=== PATIENT | male | born 1945 | race Caucasian/White ===

== ENCOUNTER 2022-02-18 12:15 | Inpatient (IN) | payer OTHER ==
[2022-02-18 12:59] LABS: SARS-CoV-2 Antigen Rapid Res Negative (Negative)
--- OUTSIDE RECORDS SUMMARY | 2022-02-18 15:41 | XMS REPORT | Clinical Summary ---
:1945 Author Organization [facility] MD [facility] [place] Address [address] [place] [address] Care Team Providers Name Role Phone Ben Boyd MD Primary Care Provider Jagdish Farrell MD Unavailable Eirn Akers MD Unavailable [phone] Nish Louis MD Unavailable Marcel Rodriguez MD Unavailable Unavailable Aries Bob Unavailable Donell Han Unavailable Akil Choi NP Unavailable Ben Boyd MD Unavailable Ollie Cabrera MD Unavailable Elaina Herron Unavailable Unavailable Allergies No known active allergies Medications Medication Sig Dispensed Refills Start End Date Status Date b complex vitamins Take 1 tablet by 0 Active tablet mouth once a week. LYSINE ORAL Take 2 tablets by 0 Active mouth once a week. NATASHA ROOT, BULK, by miscellaneous 0 Active MISC route once a week. POTASSIUM Take 0.5 tablets 0 Act issa CHLORIDE, BULK, by mouth once a MISCIndications: week. 1/2 tablet daily amLODIPine 0 Active (NORVASC) 2.5 mg 1 tablet rosuvastatin TAKE 1 TABLET BY 0 Active (CRESTOR) 5 mg MOUTH ONCE DAILY 1 tablet AT BEDTIME UNABLE TO FIND Med Name: cerebra 0 Active diphenhydrAMINE-ac Take 1 tablet by 0 Active etaminophen mouth nightly as (TYLENOL PM) needed for sleep. 25-500 mg tab DOCOSAHEXANOIC Take by mouth 0 08/27/19 D iscontinued ACID/EPA (FISH OIL daily. 22 ( Not ORAL) Applicable ) amoxicillin-clavul Take 1 tablet by 0 08/03 09/20 Discontinued anate (AUGMENTIN) mouth twice 22 (Not 250-125 mg per daily. Appli cable) tablet eszopiclone 0 02/18/20 Disconti nued (LUNESTA) 2 mg 1 22 tablet bicalutamide Take 1 tablet (50 30 tablet 0 02/18/20 Discontinued (CASODEX) 50 mg mg) by mouth 1 22 tabletIndications: daily. Adenocarcinoma of prostate Active Problems Problem Noted Date Malignant neoplasm of prostate 01/19/2017 Encounters Date Type Specialty Care Team Description 02/17/2022 Office Visit Urology Ben Boyd Adenocarcino ma of prostate 02/17/2022 Hospital Encounter Lab Ben Boyd Adenoc arcinomeche of prostate 02/17/2022 Travel 08/26/2021 Office Visit Urology Ben Boyd Adenocarcino ma of prostate 08/26/2021 Ancillary Procedure Radiology Adenocar cinoma of prostate 08/26/2021 Hospital Encounter Lab Adenocarc inoma of prostate 08/26/2021 Travel 02/25/2021 Office Visit UrologBen Lawrence Adenocarcino ma of prostate 02/25/2021 Travel 02/21/2021 Ancillary Procedure Radiology Adenocar cinoma of prostate 02/21/2021 Travel 02/18/2021 Office Visit Urology Ben Boyd Adenocarcino ma of prostate 02/18/2021 Hospital Encounter Lab Ben Boyd Adenoc arcinomeche of prostate 02/18/2021 Travel after 02/18/2021 Social History Tobacco Use Types Packs/Day Years Used Date Never Assessed Sex Assigned at Date Recorded Not on file Job Start Date Occupation Industry Not on file Not on file Not on file COVID-19 Exposure Response Date Recorded In the last 10 days, have you been in contact with No / Unsu re 02/17/2022 8:31 AM CDT someone who was confirmed or suspected to have Coronavirus/COVID-19? Last Filed Vital Signs Vital Sign Reading Time Taken Comments Blood Pressure 119/77 02/17/2022 8:39 AM CDT Pulse 91 02/17/2022 8:39 AM CDT Temperature 36.7 C (98.1 F) 02/17/2022 8:39 AM CDT Respiratory Rate 18 02/17/2022 8:39 AM CDT Oxygen Saturation 96% 02/17/2022 8:39 AM CDT Inhaled Oxygen Concentration - - Weight 79 kg (174 lb 2.6 oz) 02/17/2022 8:35 AM CDT Height 175.3 cm (5' 9.02") 08/26/2021 9:22 AM CDT Body Mass Index 25.71 08/26/2021 9:22 AM CDT Plan of Treatment Date Type Specialty Care Team Description 08/18/2022 Appointment Lab Ben Boyd MD [address] [place], [place] [address] (Wo rk) 08/18/2022 Office Visit Urology Ben Boyd MD [address] [place], [place] [address] (Elias rk) Health Maintenance Due Date Last Done Comments COVID-19 Vaccination (#1) 01/13/1950 Procedures Procedure Name Priority Date/Time Associated Diagnosis Comme nts TESTOSTERONE LEVEL Routine 02/17/2022 8:15 Adenocarcinoma of R esults for this AM CDT prostate procedure are i n the results section. PROSTATE SPECIFIC Routine 02/17/2022 8:15 Adenocarcinoma of Re sults for this ANTIGEN AM CDT prostate procedure are i n the results section. DEXA BONE MINERAL Routine 08/26/2021 9:12 Adenocarcinoma of Re sults for this DENSITY BOTH HIPS AM CDT prostate procedure are in AND SPINE the results section. TESTOSTERONE LEVEL Routine 08/26/2021 8:12 Adenocarcinoma of R esults for this AM CDT prostate procedure are i n the results section. PROSTATE SPECIFIC Routine 08/26/2021 8:12 Adenocarcinoma of Re sults for this ANTIGEN AM CDT prostate procedure are i n the results section. PETCT Routine 02/21/2021 4:25 Adenocarcinoma of Results for this 18F-PIFLUFOLASTAT PM CDT prostate procedure are in (PSMA PYL) the results section. POC CREATININE Routine 02/21/2021 3:02 Results fo r this PM CDT procedure are i n the results section. GENERAL LABORATORY STAT 02/18/2021 10:49 Adenocarcinoma of Results for this ADD ON TEST AM CDT prostate procedure are i n the results section. TESTOSTERONE LEVEL Routine 02/18/2021 8:32 Result s for this AM CDT procedure are i n the results section. PROSTATE SPECIFIC Routine 02/18/2021 8:32 Adenocarcinoma of Re sults for this ANTIGEN AM CDT prostate procedure are i n the results section. after 02/18/2021 Results (ABNORMAL) Testosterone Level (02/17/2022 8:15 AM CDT)Only the most recent of3 resultswithin the time period is included. athologist Signature Testoster Tot <3 (L) 193 - 740 [facility] ng/dL CANCER CENTER Comment: Reference Ranges: Male: Age 20 - 49 249 - 836 Age >=50 1 93 - 740 Female: Age 20 - 49 8 - 48 Age >=50 3 - 41 Specimen Anatomical Collection Method Collection Time Receive d Time (Source) Location / / Volume Laterality Blood 02/17/2022 8:15 AM 2 8:40 CDT AM CDT Ben Boyd MD LAB BLOOD ORDERABLES Performing Organization Address City/State/ZIP Code Phon e Number [facility] CANCER Unless otherwise noted, [place] [address] CENTER all lab tests performed by: Division of Pathology and Laboratory Medicine [address] [facility] PSA (02/17/2022 8:15 AM CDT)Only the most recent of3 resultswithin the time period is included. athologist [facility] PSA <0.1 0.0 - 4.0 [facility] ng/mL DIAGNOSTIC CENTER Comment: Results greater than 4519 ng/mL may not be reliable due to matrix effect with extended dilution as it exceeds the clinic office coordinator's recommended limit. Caution should be exercised when interpreting farris ch values and done in conjunction with clinical context. PSA Indication Diagnostic [facility] DIAGNOSTIC CENTER Specimen Anatomical Collection Method Collection Time Receive d Time (Source) Location / / Volume Laterality Blood 02/17/2022 8:15 AM 8:31 CDT AM CDT Ben Boyd MD LAB BLOOD ORDERABLES Performing Organization Address City/State/ZIP Code Phon e Number [facility] DIAGNOSTIC Unless otherwise noted, [place], [place] [address] CENTER all lab tests performed by: Division of Pathology and Laboratory Medicine [address] [place] [address] Bone Mineral Density Both Hips and Spine (08/26/2021 9:12 AM CDT) Anatomical Region Laterality Modality Spine Nuclear Medicine Specimen (Source) Anatomical Collection Method Collection Time Re ceived Time Location / / Volume Laterality 08/26/2021 9:13 AM CDT Impressions 08/26/2021 9:26 AM CDT 1. Osteopenia, based on measurements in the bilateral femoral necks and bilateral total hips. 2. Statistically significant interval decrease in bone mineral density in the left total hip compared to 05/16/2019. I personally reviewed these image(s) malinda faulkner with the resident's/fellow's interpretations, certify that if a procedure was performed I was physically present, and agree with the final report. Narrative 08/26/2021 9:26 AM CDT FULL RESULT: Examination: Bone Mineral Density (DXA), 08/26/2021 Clinical History: 76-year-old male treat ed for prostate cancer. Indication: Assessment of bone mineral d ensity. Comparison: DEXA 05/16/2019 Technique: Bone mineral density was obta ined using Hologic dual-energy X-ray absorptiometry. Findings: The findings are provided in t he below table(s). Bone Density: Region Exam Date BMD T- Z- g/cm2 Score Score AP Spine (L1-L4) 08/26/2021 1. 148 0.5 1.6 Femoral Neck (Left) 08/26/2021 0. 625 -2.2 -0.8 Total Hip (Left) 08/26/2021 0. 796 -1.6 -0.6 Femoral Neck (Right) 08/26/2021 0. 625 -2.2 -0.8 Total Hip (Right) 08/26/2021 0. 750 -1.9 -0.9 For postmenopausal women and men age 50 and over, the World Health Organization criteria for BMD interpreta tion classify patients as: Normal (T-score at or above -1.0), Osteopenia ( T-score between -1.0 and -2.5), or Osteoporosis (T-score at or be low -2.5). Previous Exams: Region Exam Age BMD T-score B MD Change vs Date g/cm2 Baseline Previous AP Spine (L1-L4) 08/26/2021 76 1.148 0.5 1.6% 1.6% 05/16/2019 74 1.130 0.4 Total Hip(Left) 08/26/2021 76 0.796 -1.6 -4.7%* -4.7%* 05/16/2019 74 0.836 -1.3 Femoral Neck(Left) 08/26/2021 76 0.625 -2.2 -1.9% -1.9% 05/16/2019 74 0.637 -2.2 Total Hip(Right) 08/26/2021 76 0.750 -1.9 -1.0% -1.0% 05/16/2019 74 0.757 -1.8 Femoral Neck(Right) 08/26/2021 76 0.625 -2.2 -4.1% -4.1% 05/16/2019 74 0.651 -2.0 *Denotes significance at 95% confidence level, site specific LSC for AP Spine = 0.029 g/cm2, site specific LSC for Tot al Hip = 0.033 g/cm2, site specific LSC for Femoral Neck = 0.045 g/cm2, LSC for 1/3 Forearm = 0.023 g/cm2 Procedure Note Jessica Porter MD - 08/26/2021Fo rmatting of this note might be different from the original. FULL RESULT: Examination: Bone Mineral Density (DXA), 08/26/2021 Clinical History: 76-year-old male treat ed for prostate cancer. Indication: Assessment of bone mineral d ensity. Comparison: DEXA 05/16/2019 Technique: Bone mineral density was obta ined using Hologic dual-energy X-ray absorptiometry. Findings: The findings are provided in t he below table(s). Bone Density: Region Exam Date BMD T- Z- g/cm2 Score Score AP Spine (L1-L4) 08/26/2021 1.148 0.5 1.6 Femoral Neck (Left) 08/26/2021 0.625 -2.2 -0.8 Total Hip (Left) 08/26/2021 0.796 -1.6 -0.6 Femoral Neck (Right) 08/26/2021 0.625 -2.2 -0.8 Total Hip (Right) 08/26/2021 0.750 -1.9 -0.9 For postmenopausal women and men age 50 and over, the World Health Organization criteria for BMD interpreta tion classify patients as: Normal (T-score at or above -1.0), Osteopenia ( T-score between -1.0 and -2.5), or Osteoporosis (T-score at or be low -2.5). Previous Exams: Region Exam Age BMD T-score BMD Change v s Date g/cm2 Baseline Previous AP Spine (L1-L4) 08/26/2021 76 1.148 0.5 1.6% 1.6% 05/16/2019 74 1.130 0.4 Total Hip(Left) 08/26/2021 76 0.796 -1.6 -4.7%* -4.7%* 05/16/2019 74 0.836 -1.3 Femoral Neck(Left) 08/26/2021 76 0.625 -2.2 -1.9% -1.9% 05/16/2019 74 0.637 -2.2 Total Hip(Right) 08/26/2021 76 0.750 -1.9 -1.0% -1.0% 05/16/2019 74 0.757 -1.8 Femoral Neck(Right) 08/26/2021 76 0.625 -2.2 -4.1% -4.1% 05/16/2019 74 0.651 -2.0 *Denotes significance at 95% confidence level, site specific LSC for AP Spine = 0.029 g/cm2, site specific LSC for Tot al Hip = 0.033 g/cm2, site specific LSC for Femoral Neck = 0.045 g/cm2, LSC for 1/3 Forearm = 0.023 g/cm2 IMPRESSION: 1. Osteopenia, based on measurements in the bilateral femoral necks and bilateral total hips. 2. Statistically significant interval de crease in bone mineral density in the left total hip compared to 05/16/2019. I personally reviewed these image(s) malinda faulkner with the resident's/fellow's interpretations, certify that if a procedure was performed I was physically present, and agree with the final report. Ben Boyd MD IMG DXA ORDERABLES PETCT Piflufolastat (PSMA PYL) (02/21/2021 4:25 PM CDT) Anatomical Region Laterality Modality Whole Body Positron Emission To mography (PET) Specimen (Source) Anatomical Collection Method Collection Time Re ceived Time Location / / Volume Laterality 02/21/2021 11:45 PM CDT Impressions 02/21/2021 11:51 PM CDT No PSMA-avid residual tumor nor metastas is is identified. Narrative 02/21/2021 11:51 PM CDT FULL RESULT: Examination: F-18 DCFPyL PET/CT, 021 4:30 pm Clinical History: A 76-year-old male wit h prostate cancer underwent prostatectomy in 02/2014 followed by systemic therapy including Lupron since 2018. His serum PSA levels is 1.8 ng/ml on 02/18/2021 Indication: Subsequent treatment strateg y Comparison: Technique: F-18 F-18 DCFPyL 9.5 mCi was administered intravenously via left antecubital vein vein. To allow for distribution and uptake of radiotracer, the patient was asked to rest quietly for approx imately 60 minutes. PET/CT imaging was performed from the skull to upper thigh. CT scanning was done for attenuation correction, image registration, and diagnosis with scan parameters optimized to min imize radiation exposure to the patient. SUV measurements are reported as maximum SUV based on body weight unless otherwise specified. Findings: Head and Neck: There is physiologic trac er uptake in the lacrimal glands and salivary glands. No abnormal tracer uptake is noted in the brain parenchyma, oropharynx and the thyroid glands. No abnormal t racer uptake in the neck muscles is note d. No suspicious neck lymphadenopathy is identified. Chest: No PSMA-avid pulmonary nodule is identif ied. No No PSMA-avid lymphadenopathy is seen in the axilla, don nor mediastinum. There is no pleural effusion nor pericar dial effusion. Scattered atherosclerotic calcification of the and coronary vessels aorta is noted. Abdomen and Pelvis: No PSMA avid focus is noted the prostate ctomy bed. The liver, spleen, gallbladder, adrenal glands, kidneys pancreas and the bowel loops are unremarkable. No PSMA avid lymphadenopathy is noted in the mesentery, retroperitoneum, iliac nor inguinal stations. Musculoskeletal: No PSMA avid osseous metastasis is ident ified. Degenerative changes are also seen in th e joints of the shoulders, spine and hips. Procedure Note Braxton De La Fuente MD - 02/21/2021Formattin g of this note might be different from the original. FULL RESULT: Examination: F-18 DCFPyL PET/CT, 021 4:30 pm Clinical History: A 76-year-old male wit h prostate cancer underwent prostatectomy in 02/2014 followed by systemic therapy including Lupron since 2018. His serum PSA levels is 1.8 ng/ml on Indication: Subsequent treatment strateg y Comparison: Technique: F-18 F-18 DCFPyL 9.5 mCi was administered intravenously via left antecubital vein vein. To allow for distribution and uptake of radiotracer, the patient was asked to rest quietly for approximately 60 minutes. PET/CT imaging was performed fr om the skull to upper thigh. CT scanning was done for attenuation correction, image registration, and diagnosis with scan parameters optimized to minimize radiation exposure to the patient. SUV measurements are report ed as maximum SUV based on body weight unless otherwise specified. Findings: Head and Neck: There is physiologic trac er uptake in the lacrimal glands and salivary glands. No abnormal tracer uptake is noted in the brain parenchyma, oropharynx and the thyroid glands. No abnormal tracer uptake in the neck muscles is noted. No suspici ous neck lymphadenopathy is identified. Chest: No PSMA-avid pulmonary nodule is identif ied. No No PSMA-avid lymphadenopathy is seen in the axilla, don nor mediastinum. There is no pleural effusion nor pericar dial effusion. Scattered atherosclerotic calcification of the and coronary vessels aorta is noted. Abdomen and Pelvis: No PSMA avid focus is noted the prostate ctomy bed. The liver, spleen, gallbladder, adrenal glands, kidneys pancreas and the bowel loops are unremarkable. No PSMA avid lymphadenopathy is noted in the mesentery, retroperitoneum, iliac nor inguinal stations. Musculoskeletal: No PSMA avid osseous metastasis is ident ified. Degenerative changes are also seen in th e joints of the shoulders, spine and hips. IMPRESSION: No PSMA-avid residual tumor nor metastas is is identified. Ben Boyd MD I[place] PETCT ORDERABLES (ABNORMAL) POC Creatinine (02/21/2021 3:02 PM CDT) P athologist Signature POC Crea 2.0 (H) 0.6 - 1.3 POC [facility] mg/dL Comment: Medications, especially hydroxyurea or s upplements, such as ascorbate, can interfere with test results causing a falsely and significantly higher result than expected. If a problem is suspected with a patient's result, a sample should be sent to the laboratory for confirmatory testing. Method description: The i-STAT is an ming lyzer used for in vitro quantification of various analytes in whole blood. The device uses a single disposable cartridge which contains microfabricated sensors, a calibration solution, fluidics system, and a waste chamber. Each test cartridge contains ch emically sensitive biosensors on a silicon chip that are configured to perform specific tests. The microfabricated sensors measure analyte concentration by an electrochemical assay. POC eGFR-AA 36 (L) >=60 mL/min/1.73 m2 POC [facility] OR Comment: Normal eGFR >= 60 mL/min/1.73 m2 The eGFR is calculated using the CKD-EPI equation. The eGFR declines with age. eGFR <60 mL/min/1.73 m2 is considered as "decreased" This equation should only be used for patients 18 and older. According to the National Kidney Found[employer] ion's Kidney Disease Outcome Quality Initiative (KDOQI) classification and 2012 Kidney Disease Improving Global Outcomes (KDIGO) Clinical Practice Guideline, the stage of CKD should be categorized based on estimated GFR. Stage Description GFR mL/min/1.73 m2 1 Kidney damage with normal or high GFR >=90 2 Kidney damage with mild decrease in GF R 60-89 3a Mild to moderate decrease in GFR 45-59 3b Moderate to severe decrease in GFR 30-44 4 Severe decrease in GFR 15-29 5 Kidney failure <15 (or dialysis) POC eGFR-DALE 31 (L) >=60 mL/min/1.73 m2 POC [facility] Comment: Normal eGFR >= 60 mL/min/1.73 m2 The eGFR is calculated using the CKD-EPI equation. The eGFR declines with age. eGFR <60 mL/min/1.73 m2 is considered as "decreased" This equation should only be used for patients 18 and older. According to the National Kid[employer] ion's Kidney Disease Outcome Quality Initiative (KDOQI) classification and 2012 Kidney Disease Improving Global Outcomes (KDIGO) Clinical Practice Guideline, the stage of CKD should be categorized based on estimated GFR. Stage Description GFR mL/min/1.73 m2 1 Kidney damage with normal or high GFR >=90 2 Kidney damage with mild decrease in GF R 60-89 3a Mild to moderate decrease in GFR 45-59 3b Moderate to severe decrease in GFR 30-44 4 Severe decrease in GFR 15-29 5 Kidney failure <15 (or dialysis) POC Clean Dev Yes POC [facility] Performing Lab [facility] POC TELCO R Comment: [facility] Clinical Lab, [facility], [place] [address]; Lab Direct or: Destinee Lord MD Specimen Anatomical Collection Method Collection Time Receive d Time (Source) Location / / Volume Laterality Blood 02/21/2021 3:02 PM 3:02 CDT PM CDT Unknown Provider POCT ORDERABLES - DEVICE Performing Organization Address City/State/ZIP Code Phon e Number POC [facility] Add-On Test (02/18/2021 10:49 AM CDT) [facility] Method Time Signature Ordered Test Added [facility] Test Needed Testosterone add [place] on [place] Specimen Anatomical Collection Method Collection Time Receive d Time (Source) Location / / Volume Laterality Existing 02/18/2021 10:49 02/18/2021 AM CDT 10:50 AM CDT Ben Boyd MD LAB BLOOD ORDERABLES Performing Organization Address City/State/ZIP Code Phon e Number [facility] CANCER Unless otherwise noted, [place] [address] [place] all lab tests performed by: Division of Pathology and Laboratory Medicine [address] [place] [address] after 02/18/2021 Insurance Payer Benefit Plan / Subscriber ID Effective Dates Phone Addre ss Type Group MEDICARE MEDICARE PART [id number] 2008-Steven [phone] [facility] Medicare A AND B nt 2 SOLUTIONS [address] [place] [address] Care Teams Deputy Commonwealth'S Attorney Relationship Specialty Start Date End Date Ben Boyd MD PCP - General 07/04/[address] [place] [address] Jagdish Farrell MD PCP - External Primary Care 01/18/14 [address] [place] [address] Erin Akers, PCP - External Referring [place] [place] [address] Nish Louis MD PCP - External Follow Up A 01/18/14 Marcel Rodriguez MD Physician 07/11/15 Aries Bob PA Physician Supervisor [employer] 07/11/15 [address] [place] [address] Donell Han PA Physician Supervisor [employer] 07/11/[address] [place] [address]. [place] [address] Akil Choi, VICTOR HUGO Nurse Practitioner 07/11/[address] [place] [address] Ben Boyd MD Physician 07/11/[address] [place] [phone] Ollie Cabrera MD Physician 07/11/[address] [place] [address] Elaina Herron PA Physician Supervisor [employer] 07/11/15 [address] [place] [address]
--- OUTSIDE RECORDS SUMMARY | 2022-02-18 15:42 | XMS REPORT | Continuity of Care Document ---
:1945 Author Organization [facility] t Address [address] [place] [address] Care Team Providers Name Role Phone [phone] Primary Care Physician Unavailable SYSTEM, PROVIDER NOT IN Attending Clinician Unavailable Ben Kauffman MD Attending Clinician BEN KAUFFMAN Attending Clinician Unavailable Payers Payer Name Policy Type Policy Number Effective Date Expiration Date S ource Problems Condition Condition Condition Status Onset Resolution Last Treating Co mments Source Name Details Category Date Date Treatment Clinician Date Malignant Malignant Disease Active Uni vers neoplasm neoplasm 9-18 ity of of of 00:00: [place] prostate prostate 00 MD Mamta rahman [facility] Allergies, Adverse Reactions, Alerts This patient has no known allergies or adverse reactions. Social History Social Habit Start Date Stop Date Quantity Comments Source Exposure to 2022-02-07 2022-02-17 Not sure [facility] SARS-CoV-2 (event) 00:00:00 08:31:00 Cancer Center Sex Assigned At [birth year] [facility] [place] [facility] [place] 00:00:00 00:00:00 MD [facility] Medications Ordered Filled Start Stop Current Ordering Indication Dosage Frequency Signature Comments Components Source Medication Medication Date Date Medication? Clinician (SIG) Name Name b complex 2021-05 Yes 1{tbl} Take 1 Univ ers vitamins 0-17 tablet by ity of tablet 09:02: mouth once [place] 48 a week. MD Mamta rahman [facility] LYSINE ORAL Yes 2{tbl} Take 2 Un najma 4-25 tablets by ity of 10:33: mouth once [place] 50 a week. MD Mamta rahman [facility] NATASHA Yes by Univers ROOT, BULK, 4-25 miscellane it y of MISC 10:33: ous route [place] 50 once a MD week. Mamta rahman [facility] POTASSIUM Yes .5{tbl} Take 0.5 U nivers CHLORIDE, 4-25 tablets by ity of BULK, MISC 10:33: mouth once [place] 50 a week. MD Mamta rahman [facility] UNABLE TO Yes Med Name: Uni vers FIND 4-25 cerebra ity of 10:33: [place] 50 MD Mamta rahman [facility] diphenhydrA Yes 1{tbl} Take 1 Un najma MINE-acetam 4-25 tablet by ity of inophen 10:33: mouth Jodi (TYLENOL 50 nightly as PM) 25-500 needed for And erso mg tab sleep. [facility] DOCOSAHEXAN 2021- No Take by Un najma OIC 4-25 04-25 mouth ity of ACID/EPA 10:33: 00:00 daily. Jodi (FISH OIL 50 :00 MD CANTU) Mamta rahman [facility] amoxicillin 2021- No 1{tbl} Take 1 U nivers -clavulanat 4-25 04-25 tablet by it y of e 10:33: 00:00 mouth Jodi (AUGMENTIN) 50 :00 twice 250-125 mg daily. Mamta tyson tablet [facility] bicalutamid 2020-05- No Adenocarcin 50mg Take 1 Univers e (CASODEX) 0-25 10-17 richard of tablet (50 ity of 50 mg 00:00: 00:00 prostate mg) by Jodi tablet 00 :00 mouth daily. Mamta rahman [facility] eszopiclone 2020-05- No Unive rs (LUNESTA) 2 0-11 10-17 ity of mg tablet 00:00: 00:00 [place] 00 :00 MD Oleary [facility] amLODIPine Yes Gerry (NORVASC) 9-09 ity of 2.5 mg 00:00: [place] tablet 00 MD Mamta rahman [facility] rosuvastati Yes TAKE 1 Univ ers n (CRESTOR) 8- TABLET BY ity of 5 mg tablet 00:00: MOUTH ONCE [place] 00 DAILY AT MD BEDTIME Mamta rahman [facility] [place] Vital Signs Vital Name Observation Time Observation Value Comments Source Systolic blood 2022-02-17 13:39:24 119 mm[Hg] Univer sity of pressure [place] MD Augustin on [facility] Diastolic blood 2022-02-17 13:39:24 77 mm[Hg] Unive rsity of pressure [place] MD Augustin [facility] Heart rate 2022-02-17 13:39:24 91 /min [facility] MD Augustin [facility] Body temperature 2022-02-17 13:39:24 36.72 Karlene [facility] MD Augustin [facility] Respiratory rate 2022-02-17 13:39:24 18 /min [facility] MD Augustin [facility] Oxygen saturation in 2022-02-17 13:39:24 96 /min [facility] Arterial blood by Jodi patel Pulse oximetry [facility] Body weight 2022-02-17 13:35:00 79 kg [facility] MD Augustin [facility] BMI 2022-02-17 13:35:00 25.71 kg/m2 [facility] MD Augustin [facility] Body height 2021-08-26 14:22:00 175.3 cm [facility] MD Augustin [facility] Procedures Procedure Date / Time Performing Clinician Source Performed PROSTATE SPECIFIC 2022-02-17 13:15:00 Donell Han [facility] TESTOSTERONE LEVEL 2022-02-17 13:15:00 Donell Han [facility] DEXA BONE MINERAL 2021-08-26 14:12:00 Oliver [facility] DENSITY BOTH HIPS AND MD Mamta rahman [facility] SPINE Center PROSTATE SPECIFIC 2021-08-26 13:12:00 Ben Kauffman [facility] TESTOSTERONE LEVEL 2021-08-26 13:12:00 Ben Kauffman [facility] PETCT 18F-PIFLUFOLASTAT 2021-02-21 21:25:54 Ben Kauffman [facility] [place] POC CREATININE 2021-02-21 20:02:00 Provider, Christian [facility] GENERAL LABORATORY ADD 2021-02-18 15:49:00 Ben Kauffmane [facility] ON TEST [facility] PROSTATE SPECIFIC 2021-02-18 13:32:00 Ben Kauffman [facility] ANTIGEN [facility] TESTOSTERONE LEVEL 2021-02-18 13:32:00 Ben Kauffman [facility] Plan of Care Planned Activity Planned Date Details Comments Source Future Scheduled 2022-02-17 COVID-19 Vaccination Uni [facility] Test 09:01:28 (#1) [code = COVID-19 MD And [facility] Vaccination (#1)] Center Encounters Start End Encounter Admission Attending Care Care Encounter Source Date/Time Date/Time Type Type Clinicians Facility Department ID 2021-08-29 Outpatient SYSTEM, DAKSHA CROOKS [id number] 13:13:41 PROVIDER Charli rahman 2022-02-17 2022-02-17 Office Pisters, 1.2.840.1 [id number] Univers 09:00:00 10:33:36 Visit Ben 34506.1.1 ity of 3.412.2.7 [place] .[id number] .Handy rahman [facility] 2022-02-17 2022-02-17 Outpatient EL PISTERS, DAKSHA CROOKS [id number] 08:32:15 10:33:36 BEN arhman 2022-02-17 2022-02-17 Hospital Pisters, 1.2.840.1 [id number] Univers 07:00:00 07:00:00 Encounter Ben 27225.1.1 it y of 3.412.2.7 [place] .3.920713 .Handy rahman [facility] 2022-02-17 2022-02-17 Outpatient EL PISTERS, DAKSHA CROOKS [id number] 07:00:00 07:00:00 BEN rahman 2022-02-17 2022-02-17 Travel 1.2.840.1 [id number] Univers 00:00:00 00:00:00 [id number] 350.1.13.41 ity of 3.412.2.7 2.2.7.3.698 [place] .3.388029 084.8 MD Lorenzana [facility] 2021-08-26 2021-08-26 Hospital 1.2.840.1 [id number] Univers 07:00:00 23:59:00 Encounter 12485.1.1 it y of 3.412.2.7 [place] .3.175383 MD Lorenzana [facility] 2021-08-26 2021-08-26 Outpatient EL [facility] [id number] 07:00:00 23:59:00 Charli rahman 2021-08-26 2021-08-26 Office Pisters, 1.2.840.1 [id number] [facility] 11:00:00 12:16:49 Visit Ben 56407.1.1 ity of 3.412.2.7 [place] .3.486528 MD Serrato8 [facility] 2021-08-26 2021-08-26 Outpatient EL PISTERS, [facility] [id number] 09:21:55 12:16:49 BEN rahman 2021-08-26 2021-08-26 Ancillary 1.2.840.1 [id number] Univers 10:00:00 10:20:00 Procedure 24150.1.1 it y of 3.412.2.7 [place] .3.269468 MD Lorenzana [facility] 2021-08-26 2021-08-26 Outpatient EL [facility] [id number] 08:15:11 08:15:11 Charli rahman 2021-08-26 2021-08-26 Travel 1.2.840.1 [id number] [id number] Univers 00:00:00 00:00:00 95082.1.1 350.1.13.41 ity of 3.412.2.7 2.2.7.3.698 [place] .[id number] 084.8 MD Lorenzana [facility] 2021-02-25 2021-02-25 Office Pisters, 1.2.840.1 [id number] Univers 08:30:00 12:32:34 Visit Ben 22676.1.1 ity of 3.412.2.7 [place] .3.107815 MD Lorenzana [facility] 2021-02-25 2021-02-25 Outpatient EL PISTERS, [facility] [id number] 08:13:18 12:32:34 BEN Augustin lacey 2021-02-25 2021-02-25 Travel 1.2.840.1 [id number] [id number] Univers 00:00:00 00:00:00 85502.1.1 350.1.13.41 ity of 3.412.2.7 2.2.7.3.698 [place] .3.797182 084.8 MD Lorenzana [facility] 2021-02-21 2021-02-21 Ancillary 1.2.840.1 [id number] [facility] 14:30:00 17:00:00 Procedure 35543.1.1 it y of 3.412.2.7 [place] .3.416781 MD Lorenzana [facility] 2021-02-21 2021-02-21 Outpatient [facility] [id number] [place] 14:11:05 14:11:05 Charlibina rahman 2021-02-21 2021-02-21 Travel 1.2.840.1 1.2.736.569 [id number] Univers 00:00:00 00:00:00 38542.1.1 350.1.13.41 ity of 3.412.2.7 2.2.7.3.698 [place] .3.015446 084.8 MD Lorenzana [facility] 2021-02-18 2021-02-18 [facility] [id number] 08:11:45 23:59:00 BEN rahman 2021-02-18 2021-02-18 Hospital Pisters, 1.2.840.1 [id number] Univers 08:11:45 23:59:00 Encounter Ben 85098.1.1 it y of 3.412.2.7 Jodi .3.403619 MD Lorenzana [facility] 2021-02-18 2021-02-18 Office Pisters, 1.2.840.1 [id number] Univers 10:30:00 10:32:09 Visit Ben 62513.1.1 ity of 3.412.2.7 Jodi .3.548080 MD Lorenzana [facility] 2021-02-18 2021-02-18 Outpatient EL PISTERS, [facility] [id number] 08:37:55 10:32:09 BEN [facility] 2021-02-18 2021-02-18 Travel 1.2.840.1 [id number] [id number] Univers 00:00:00 00:00:00 71724.1.1 350.1.13.41 ity of 3.412.2.7 2.2.7.3.698 [place] .3.177735 084.8 MD Lorenzana [facility] Results Test Description Test Time Test Comments Results Result Comments Source PSA 2022-02-17 14:17:05 Test Item Value Reference Range Interpretation Comme nts PSA (test code = 2857-1) <0.1 0.0-4.0 Res ults greater than 4519 ng/mL may not be reli able due to matrix effect with ext ended dilution as it exceeds the parcel post order clerk's recommended pickett it. Caution should be exercised wh en interpreting such values and done in conjunction wit h clinical context. PSA Indication (test code = Diagnostic 02212-7) [facility] Gvojz1068-[facility] 14:15:35 Test Item Value Reference Range Interpretation Comments Testoster Tot (test code <3 193-740 L Ref erence Ranges: = 2986-8) Male: Age 20 - 49 249 - 836 Age > =50 193 - 740 Femal e: Age 20 - 49 8 - 48 Age >=50 3 - 41 Lab Interpretation (test Abnormal code = 63517-7) [facility] [id number] 20:12:28 Test Item Value Reference Range Interpretation Comments POC Crea (test code 2.0 mg/dL 0.6-1.3 H Medicati ons, = 70882-6) especially hydroxyurea or supplements, farris ch as ascorbate, can interfere with test results causing a falsely and significantly h igher result than exp ected. If a problem is suspected with a patient's resul t, a sample should b e sent to the laborato for confirmatory te sting. Method descript ion: The i-STAT is a n analyzer used f or in vitro quantific ation of various anal ytes in whole blood. The device uses a s marely disposable cart ridge which contains microfabricated sensors, a calibration emeli ution, fluidics system , and a waste chamber . Each test cartridge contains chemic ally sensitive biose nsors on a silicon [employer] ip that are config ured to perform spec ific tests. The microfabricated sensors measure analyte concent ration by an electroch emical assay. POC eGFR-AA (test 36 See_Comment L Normal eGF R >= 60 code = 94931-8) mL/min/1.73 m2 The eGFR is calcula carey using the CKD-E PI equation. The e GFR declines with a ge. eGFR <60 mL/min /1.73 m2 is considere d as "decreased" Thi s equation should only be used for pat ients 18 and older. According to th e National Kidney Foundation's Ki dney Disease Outcome Quality Initiat issa (KDOQI) classification and 2012 Kidney Dis ease Improving Globa l Outcomes (KDIGO ) Clinical Practi ce Guideline, the stage of CKD should b e categorized bas ed on estimated GFR. Stage Description GFR mL/min/1.73 m21 Kidney damage w ith normal or high GFR >=902 Kidney da mage with mild decre ase in GFR 60-893a Mil d to moderate decrea se in GFR 45-593b Mod erate to severe decre ase in GFR 30-444 Na re decrease in GFR 15-295 Kidney f ailure <15 (or dialysi s) [Automated mess age] The system [employer] generated this result transmitted ref erence range: >=60 mL/min/1.73 m2. The reference range was not used to int erpret this result as normal/abnormal . POC eGFR-DALE (test 31 See_Comment L Normal eG FR >= 60 code = 28553-3) mL/min/1.73 m2 The eGFR is calcula carey using the CKD-E PI equation. The e GFR declines with a ge. eGFR <60 mL/min /1.73 m2 is considere d as "decreased" Thi s equation should only be used for pat ients 18 and older. According to th e National Kidney Foundation's Ki dney Disease Outcome Quality Initiat issa (KDOQI) classification and 2012 Kidney Dis ease Improving Globa l Outcomes (KDIGO ) Clinical Practi ce Guideline, the stage of CKD should b e categorized bas ed on estimated GFR. Stage Description GFR mL/min/1.73 m21 Kidney damage w ith normal or high GFR >=902 Kidney da mage with mild decre ase in GFR 60-893a Mil d to moderate decrea se in GFR 45-593b Mod erate to severe decre ase in GFR 30-444 Na re decrease in GFR 15-295 Kidney f ailure <15 (or dialysi s) [Automated mess age] The system [employer] h generated this result transmitted ref erence range: >=60 mL/min/1.73 m2. The reference range was not used to int erpret this result as normal/abnormal . POC Clean Dev (test Yes code = 6672) Performing Lab (test MDA Main Main Ca mpus code = 76766) [facility] Cli n[facility] Lab, [address] [place], [place] [address]car[place] [address]; Scientific Aide: Kari Lord MD Lab Interpretation Abnormal (test code = 12129-5) [facility] Add[facility]On Test 2021-02-18 17:08:40 Test Item Value Reference Range Interpretation Comments Ordered (test code = Test Added 6568) Test Needed (test Testosterone add on test code = 7604) [facility]
[2022-02-18 15:50] VITALS: BMI 25.8
[2022-02-18 16:44] VITALS: O2SAT 96
[2022-02-18] MEDS ORDERED: METOPROLOL XL 25 MG TAB PO ONE (17:00)
[2022-02-18 17:42] LABS: Potassium 3.9 mmol/L (3.5-5.1); Thyroid Stimulating Hormone 3.32 uIU/mL (0.360-3.740)
[2022-02-18] MEDS ORDERED: ENOXAPARIN 80 MG/0.8 ML SQ SCH (18:00)
[2022-02-18] MEDS ORDERED: POTASSIUM CL SA 10 MEQ TAB PO ONE (19:00)
[2022-02-18] MEDS ORDERED: APIXABAN 5 MG TABLET PO SCH (21:00)
[2022-02-18] MEDS ORDERED: ASPIRIN EC 81 MG TAB PO ONE (21:26)
[2022-02-18] MEDS ORDERED: ATORVASTATIN 40 MG TAB PO SCH (22:00)
[2022-02-18] MEDS ORDERED: METOPROLOL XL 25 MG TAB PO SCH (22:00)
[2022-02-18] MEDS ORDERED: ALPRAZOLAM 0.25 MG TABLET PO SCH (22:00)
[2022-02-19 03:46] LABS: Hematocrit 37.7 % (39.6-49.0); Lymphocytes % 32.8 % (15.3-44.8); MCV 89.4 fL (80-100); MPV 9.1 fL (7.6-11.3); RBC Red Blood Cell Count 4.22 M/uL (4.33-5.43)
[2022-02-19 04:01] LABS: Potassium 4.2 mmol/L (3.5-5.1)
[2022-02-19 04:11] LABS: Troponin High Sensitivity 197.7 pg/mL (<58.9)
[2022-02-19] MEDS ORDERED: METOPROLOL XL 50 MG TAB PO SCH (09:00)
[2022-02-19] MEDS ORDERED: ASPIRIN EC 81 MG TAB PO SCH (09:00)
--- NOTE | 2022-02-19 15:37 | CON ---
Date of Consultation: 02/19/2022 Reason For Consultation: New diagnosis of atrial fibrillation. History Of Present Illness: This is a 77-year-old male who is a patient of Dr. Farrell, has history of prostate cancer, hypertension, dyslipidemia. He was in to see Dr. Farrell for routine checkup and found to be in atrial fibrillation. Apparently, heart rate was fast. He was directed to the hospital. I n the hospital, he was started on Xarelto, metoprolol and his heart rate is coming down. It is in th e low 100s this morning, and he appears to be doing well. Does not have any chest pain or shortness of breath, nausea, vomiting, or any other complaints. Past Medical History: As outlined above in the HPI. Medications: Refer reconciliation sheet for detailed list. Allergies: NO KNOWN DRUG ALLERGIES. Family History: No premature coronary artery disease or cancer. Social History: Does not smoke or drink. Does not use any drugs. Review of Systems: All systems reviewed and they are negative except as mentioned in HPI. Physical Examination: Vital Signs: Reviewed. Temperature is 97.0, pulse 79, breathing at 16, blood pressure is 105/70, sa turating 98% on room air. General: Pleasant, elderly gentleman, no apparent distress. Head and Neck: Pupils are equal, reactive to light. Intact eye movements. No JVD. No cervical lym phadenopathy. Neck: Supple. Thyroid is not enlarged. Lungs: Clear to auscultation bilaterally. No rhonchi, rales, or crackles. No accessory muscle use. Heart: Irregularly irregular. No extra sounds. Abdomen: Soft, nontender. Bowel sounds positive. No organomegaly. No masses or hernia. No rigidi ty or rebound. Extremities: No edema, clubbing, or cyanosis. Intact pulses. Skin: No rash. Neurologic: Alert, awake, oriented x3. No acute focal deficits appreciated. Investigations: Troponin was 227 and then 197. Creatinine was 2.1 and now it is 1.9. Hemoglobin is 12.7. Assessment And Recommendations: 1.Atrial fibrillation with rapid ventricular response, now rate is under control. The patient is be ing managed appropriately with metoprolol to continue that along with the anticoagulant with rivaroxa ban. 2.Elevated troponin. No chest pain. This is a demand ischemia due to the fast heart rate earlier. At this point, no further cardiac workup as an inpatient is recommended. We will follow the patient on outpatient basis and plan for a stress test and an echocardiogram as well. 3.Dyslipidemia, on statin. SR/MODL Voice ID: [id number] Report ID: [id number]
[2022-02-19 16:20] VITALS: BP 107/71; TEMP 97.1
[2022-02-19] MEDS ORDERED: RIVAROXABAN 15 MG TABLET PO SCH (17:00)
[2022-02-19] MEDS ORDERED: ENOXAPARIN 80 MG/0.8 ML SQ SCH (18:00)
[2022-02-19] MEDS ORDERED: ESZOPICLONE 1 MG TAB PO SCH (21:00)
--- NOTE | 2022-02-20 09:07 | ECHO ---
HEIGHT: 5 ft 9 in WEIGHT: 175 lb 0 oz DATE OF STUDY: 02/19/[address]: Jagdish Farrell MD 2-DIMENSIONAL: YES M.MODE: YES DOPPLER: YES COLOR FLOW: YES TDS: NO PORTABLE: YES DEFINITY: NO BUBBLE STUDY: NO DIAGNOSIS: ATRIAL FIBRILLATION CARDIAC HISTORY: CATHERIZATION: NO SURGERY: NO PROSTHETIC VALVE: NO PACEMAKER: NO MEASUREMENTS (cm) DIASTOLIC (NORMALS) SYSTOLIC (NORMALS) IVSd 1.0 (0.6-1.2) LA Diam 2.7 (1.9-4.0) LVEF 62% LVIDd 4.2 (3.5-5.7) LVIDs 2.8 (2.0-3.5) %FS 33% LVPWd 1.0 (0.6-1.2) Ao Diam 2.7 (2.0-3.7) 2 DIMENSIONAL ASSESSMENT: RIGHT ATRIUM: NORMAL LEFT ATRIUM: NORMAL RIGHT VENTRICLE: NORMAL LEFT VENTRICLE: NORMAL TRICUSPID VALVE: MILD TRICUSPID REGURGITATION MITRAL VALVE: MILD MITRAL REGURGITATION PULMONIC VALVE: NORMAL AORTIC VALVE: CALCIFIED AORTIC VALVE WITH MILD AORTIC STENOSIS PERICARDIAL EFFUSION: NONE AORTIC ROOT: NORMAL LEFT VENTRICULAR WALL MOTION: ATRIAL FIBRILLATION. DOPPLER/COLOR FLOW: SEE BELOW. COMMENTS: NORMAL LEFT VENTRICULAR EJECTION FRACTION 55-60%. ATRIAL FIBRILLATION. MILD MITRAL REGURGITATION/ MILD TRICUSPID REGURGITATION. CALCIFIED AORTIC VALVE WITH MILD AORTIC STENOSIS. MILD AORTIC INSUFFICIENCY TECHNOLOGIST: JENNIFER WOODS
--- NOTE | 2022-02-20 10:31 | DS ---
Date of Discharge: 02/19/2022 Disposition: Discharged to go home. Physical Examination: HEENT: Unremarkable. Lungs: Clear to auscultation. Heart: Sounds normal. Abdomen: Soft. Bowel sounds normal. No guarding, rigidity, tenderness, distention. Extremities: No leg edema. Laboratory Data: Today; sodium 141, potassium 4.2, chloride 111, bicarb 24, BUN 44, creatinine 1.95, estimated GFR 34, glucose 103, and first troponin yesterday was 227, second troponin today 197. Discharge Medications And Instructions: 1.Continue Lunesta and rosuvastatin as you were taking before. 2.Stop amlodipine and start metoprolol succinate 50 mg take 1 tablet by mouth 2 times a day and take s Xarelto 15 mg daily with evening meal. 3.Follow up at my office next week. 4.Follow up with lead project manager next week. Final Diagnoses: 1.Chronic atrial fibrillation. 2.Chronic kidney disease, stage 3B. 3.Anemia due to chronic kidney disease. 4.Hypertension. 5.Hyperlipidemia. 6.Prostate cancer. Hospital Course: This is a 77-year-old pleasant male patient, admitted to the hospital for further e valuation management after he was diagnosed as having atrial fibrillation with rapid ventricular rate on outpatient basis. Please see dictated H and P for more information. The patient's troponin leve l first one was 227, second one 197 and no indication for any myocardial infarction, but this is like ly representing demand ischemia. Cardiology consultation was obtained from Dr. Posada and he has angie ared the patient for discharge from Cardiology point of view. Medically, he is stable for discharge and lead project manager will pursue further outpatient management including stress test. Echocardiogram was done, result pending, we will follow up on that outpatient basis. The patient was started on metopr olol 50 mg 2 times a day and that actually has helped to control his heart rate. He was also started on anticoagulation therapy. He received 1 dose of Lovenox yesterday and starting today, we will sta rt him on Xarelto 15 mg daily. The patient's creatinine clearance is 34, so he qualifies for a lower dose of Xarelto, which is 15 mg daily. Risk, benefit of anticoagulation therapy discussed with him. The patient was discharged to go home in stable condition with above-mentioned medications and inst ructions. CESAR/MODL Voice ID: [id number] Report ID: [id number]
--- NOTE | 2022-02-20 11:37 | HP ---
Date of Admission: 02/18/2022 Chief Complaint: Rapid heart rate. History Of Present Illness: This is a 77-year-old very pleasant male patient who came into office fo r his regular followup visit. The patient was noted to have rapid and irregular pulse at office toda y upon his routine checkup of his vital signs and he denies any chest pain, shortness of breath. No palpitation feeling, but reports that from time to time while checking his blood pressure at home, he noted that his heart rate would be in range of 110-120. Denies any dizziness. No vomiting. No enrike rrhea. No recent febrile illness. After he was evaluated at office, stat EKG showed atrial fibrilla tion with rapid ventricular rate and decision was made to admit the patient to hospital for further e valuation and management of this problem. Allergies: NO KNOWN ALLERGIES. Medications: Amlodipine 2.5 mg daily, Lunesta 2 mg at bedtime as needed for sleep, and rosuvastatin 5 mg daily at bedtime. Review of Systems: Cardiovascular: As mentioned above. All other systems reviewed and negative. Past Medical History: Hypothyroidism, hypertension, hyperlipidemia, chronic kidney disease, prostate cancer, basal cell carcinoma, anemia due to chronic kidney disease, and insomnia. Past Surgical History: Significant for cataract surgery, tonsillectomy, hernia repair, prostatectomy in 2013, removal of basal cell carcinoma and surgery on his face. Family History: Father had carotid artery stenosis. Mother had diabetes and skin cancer. Brother a lso has carotid artery stenosis. Social History: Negative for smoking. Use of alcohol occasional. Physical Examination: Vital Signs: Blood pressure 126/80; pulse 120, irregularly irregular; temperature 97.1; respiratory rate 18. Weight 177.2 pounds, height 70 inches. General: Awake, alert, oriented, not in distress. HEENT: Head atraumatic, normocephalic. Conjunctivae nonerythematous. Sclerae white. Mouth, no thr ush or edema noted. Ears/Nose, no mass, lesion, discharge noted. Neck: Supple. No JVD, lymph nodes, bruit, thyromegaly noted. Lungs: Bilateral good equal air entry. Clear to auscultation. No rhonchi. No rales. Heart: Patient's heart rate was rapid and rhythm was irregularly irregular and presence of systolic murmur unchanged from before. Abdomen: Soft, bowel sounds normal. No guarding, rigidity, tenderness, mass, hepatosplenomegaly, dis tention, or bruit noted. Extremities: No leg edema. No calf tenderness. Skin: No rash, ulcer, cellulitis. Lymphatics: No lymph node enlargement in neck, supraclavicular, infraclavicular region. Neuro: No focal neurological deficit. Chest: Unremarkable. External Genitalia: Deferred. Rectal: Deferred. Laboratory Data: COVID-19 test negative. Sodium 143, potassium 3.9, chloride 112, bicarb 25, BUN 46 , creatinine 2.12. Estimated GFR 31. Glucose 103. Troponin 227. TSH 3.32. Magnesium 2. EKG: At rial fibrillation with rapid ventricular rate. Impression: 1.Atrial fibrillation, chronic. 2.Chronic kidney disease, stage 3B. 3.Anemia due to chronic kidney disease. 4.Hypertension. 5.Prostate cancer. 6.Insomnia. 7.Hyperlipidemia. 8.Anemia due to chronic kidney disease. Plan: We will go ahead and admit the patient to the hospital for further evaluation and management o f this problem. Patient is appropriate for inpatient and is expected to spend 2 midnights in hospita l. We will keep patient on hospital monitor. After he arrived to the hospital, we started him on L ovenox 1 mg/kg subcutaneous injection, was ordered, which he received 1 dose yesterday at 1800 and co nsidering his renal function, we will not give him every 12 hours as planned, but we will just change from Lovenox to Xarelto and his creatinine clearance is 34, so he would qualify for a lower dose, wh ich will be 15 mg daily. After he came to the hospital, we started him on metoprolol and we will con sult Cardiology, order echo with Doppler to be done tomorrow, and we will repeat cardiac enzymes as w ell. Elevated cardiac enzyme could indicate either non-STEMI or demand ischemia depending on his nex t troponin level. We will make that determination. Plan of treatment discussed with the patient. I will see him tomorrow for followup. CESAR/MODL Voice ID: [id number]
== END 2022-02-19 18:07 | disposition home or self-care (01) | DRG 309 ==
LOC: 2ND 15:38
PROVIDERS: ADMIT Internal Medicine; ATTEND Internal Medicine
DX: I48.20 Chronic atrial fibrillation, unspecified (principal); I24.8 Other forms of acute ischemic heart disease; E03.9 Hypothyroidism, unspecified; I12.9 Hypertensive chronic kidney disease with stage 1 through stage 4 chronic kidney disease, or unspecified chronic kidney disease; N18.32 Chronic kidney disease, stage 3b; D63.1 Anemia in chronic kidney disease; G47.00 Insomnia, unspecified; E78.5 Hyperlipidemia, unspecified; Z85.46 Personal history of malignant neoplasm of prostate; Z79.01 Long term (current) use of anticoagulants; Z79.899 Other long term (current) drug therapy; Z20.822 Contact with and (suspected) exposure to COVID-19
CPT/HCPCS: 36415; 80048; 83735; 84443; 84484; 85025; 87811; 93005; 93306